=== PATIENT | male | born 1960 | race Caucasian/White ===

== ENCOUNTER 2017-10-03 19:51 | Emergency (ER) | payer OTHER ==
[~2017-10-03] VITALS: Ht 190.5 cm; Wt 106.8 kg
[~2017-10-03 19:51] MED LIST: LIDEX TP; PREDNISONE20 MG PO
[2017-10-03 20:00] VITALS: BP 129/80; PULSE 70; TEMP 97.7
[2017-10-03] MEDS ORDERED: LIPITOR 40MG TA40 MG PO (20:11)
[2017-10-03] MEDS ORDERED: GLUCOPHAGE1000 MG PO (20:11)
[2017-10-03] MEDS ORDERED: PRINIVIL10 MG PO (20:11)
[2017-10-03] MEDS ORDERED: NORCO 325 MG-51 TAB PO (21:47)
[2017-10-03] MEDS ORDERED: PREDNISONE10 MG PO (21:47)
== END 2017-10-03 21:59 | disposition home or self-care (01) ==
LOC: COL.ER 19:51
DX: M53.3 Sacrococcygeal disorders, not elsewhere classified (principal); E11.9 Type 2 diabetes mellitus without complications; Z79.84 Long term (current) use of oral hypoglycemic drugs
CPT/HCPCS: J7512

== ENCOUNTER → 2019-06-27 | Outpatient (CLI) | payer OTHER ==
[~2019-06-27] MED LIST changes: +GLUCOPHAGE1000 MG PO; +LIPITOR 40MG TA40 MG PO; +NORCO 325 MG-51 TAB PO; +PREDNISONE10 MG PO; +PRINIVIL10 MG PO
== END ==
LOC: COL.RAD 06-21 09:45
DX: M19.011 Primary osteoarthritis, right shoulder (principal)

== ENCOUNTER 2020-07-08 05:39 | Emergency (ER) | payer OTHER ==
[~2020-07-08] VITALS: Ht 190.5 cm; Wt 113.6 kg
[2020-07-08 05:44] VITALS: BP 124/83; TEMP 97.9
[2020-07-08] MEDS ORDERED: CILOXAN .3% EY2.5 ML OD ×2 (06:21)
[2020-07-08 06:32] VITALS: PULSE 65
== END 2020-07-08 06:33 | disposition home or self-care (01) ==
LOC: COL.ER 05:39
DX: H57.89 Other specified disorders of eye and adnexa (principal); Z79.52 Long term (current) use of systemic steroids; Z79.84 Long term (current) use of oral hypoglycemic drugs